=== PATIENT | male | born 2000 | race Caucasian/White ===

== ENCOUNTER 2021-07-08 13:03 | Emergency (ER) | payer SELFPAY ==
[~2021-07-08] VITALS: Ht 182.9 cm; Wt 72.6 kg
[2021-07-08 13:42] VITALS: BP 124/80
--- NOTE | 2021-07-08 14:16 | NUR ---
SEEN AND EXAMINED BY .
[2021-07-08] MEDS ORDERED: IBUPROFEN 600 MG TABLET PO ONE (14:30)
[2021-07-08] MEDS ORDERED: IBUPROFEN 600 MG TABLET ONE (14:33)
--- NOTE | 2021-07-08 15:35 | NUR ---
RAPID COVID AND RAPID STREP SWAB DONE AND SENT TO LAB
[2021-07-08] MEDS ORDERED: IBUP-1957 PO (16:39)
--- NOTE | 2021-07-08 16:50 | NUR ---
Patient discharged to home in stable condition. Written and verbal after care instructions given. Patient verbalizes understanding of instruction.
== END 2021-07-08 16:48 | disposition home or self-care (01) ==
LOC: ER 13:09
DX: J06.9 Acute upper respiratory infection, unspecified (principal); Z20.822 Contact with and (suspected) exposure to COVID-19; Z88.6 Allergy status to analgesic agent; Z88.0 Allergy status to penicillin
CPT/HCPCS: 87070; 87426; 87880; 99283; C9803; 86403-TC